=== PATIENT | female | born 1970 | race Caucasian/White ===

== ENCOUNTER 2022-10-14 14:37 | Inpatient (IN) | payer BC ==
[2022-10-14 17:03] VITALS: BMI 19.5
[2022-10-14] MEDS ORDERED: MAGNESIUM HYDROX 2400MG/30ML ORAL SUSPENSION 30 ML CUP PO PRN (17:55)
[2022-10-14] MEDS ORDERED: LOPERAMIDE HCL 2 MG CAPSULE PO PRN (17:55)
[2022-10-14] MEDS ORDERED: ONDANSETRON *ODT* 4 MG TABLET SL PRN (17:55)
[2022-10-14] MEDS ORDERED: POLYETHYLENE GLYCOL (HEALTHYLAX) 3350 17 GM PACKET PO PRN (17:55)
[2022-10-14] MEDS ORDERED: BENZOCAINE/MENTHOL (CHLORASEPTIC ) LOZENGE MM PRN (17:55)
[2022-10-14] MEDS ORDERED: MAG HYDROX/AL HYDROX/SIMETH 30 ML UNIT-DOSE CUP PO PRN (17:55)
[2022-10-14] MEDS ORDERED: P-EPHED 60MG/TRIPROLIDI 2.5MG TABLET PO PRN (17:55)
[2022-10-14] MEDS ORDERED: NALOXONE HCL 0.4 MG/ML VIAL IM PRN (17:55)
[2022-10-14] MEDS ORDERED: cloNIDine HCL 0.1 MG TABLET ONE (17:55)
[2022-10-14] MEDS ORDERED: NALOXONE HCL (KLOXXADO) 8 MG SPRAY NS PRN (17:55)
[2022-10-14] MEDS ORDERED: BISMUTH SUBSALICYLATE 524 MG/30 ML PO PRN (17:55)
[2022-10-14] MEDS ORDERED: DICYCLOMINE HCL 10 MG CAPSULE PO PRN (17:55)
[2022-10-14] MEDS ORDERED: guaiFENesin 200 MG/10 ML 10 ML UNIT-DOSE CUPS PO PRN (17:55)
[2022-10-14] MEDS ORDERED: ACETAMINOPHEN 325 MG TABLET (FP) PO PRN (17:55)
[2022-10-14] MEDS ORDERED: hydrOXYzine PAMOATE 25 MG CAPSULE (FP) PO PRN (17:55)
[2022-10-14] MEDS ORDERED: NICOTINE POLACRILEX 2 MG GUM BUC PRN (17:55)
[2022-10-14] MEDS ORDERED: cloNIDine HCL 0.1 MG TABLET PO ONE (18:00)
[2022-10-14] MEDS: ASPIRIN 325 MG ENTERIC COATED TABLET (FP) PO SCH (22:04)
[2022-10-14] MEDS: THIAMINE HCL 100 MG TABLET (FP) PO SCH (22:04)
[2022-10-14] MEDS: MELATONIN 5 MG TABLETS PO PRN (22:05)
[2022-10-14] MEDS: METHOCARBAMOL 500 MG TABLET PO PRN (22:06)
[2022-10-14] MEDS: diazePAM 5 MG TABLET PO SCH (22:06)
[2022-10-15] MEDS: diazePAM 5 MG TABLET PO SCH ×4 (05:39→22:45)
[2022-10-15] MEDS ORDERED: methaDONE HCL 10 MG TABLET PO SCH (08:45)
[2022-10-15] MEDS: methaDONE 80 MG, methaDONE 10 MG PO SCH (09:05)
[2022-10-15] MEDS: metoPROLOL SUCCINATE 25 MG TAB.SR.24H (FP) PO SCH (09:06)
[2022-10-15] MEDS: ASPIRIN 325 MG ENTERIC COATED TABLET (FP) PO SCH (09:06)
[2022-10-15] MEDS: CLOPIDOGREL BISULFATE 75 MG TABLET (FP) PO SCH (09:06)
[2022-10-15] MEDS: PRENATAL VITAMINS W/ FOLIC ACID TABLET (FP) PO SCH (09:06)
[2022-10-15] MEDS: METHOCARBAMOL 500 MG TABLET PO PRN (10:24)
[2022-10-15] MEDS ORDERED: cloNIDine HCL 0.1 MG TABLET PO ONE (10:41)
[2022-10-15] MEDS ORDERED: NICOTINE 10 MG CARTRIDGE (INHALER) IH PRN (10:55)
[2022-10-15 11:29] LABS: HEMATOCRIT 44.4 % (32.4-45.2); HEMOGLOBIN 14.2 GM/dL (10.7-15.3); MCH 31.9 pg (25.7-33.7); MCHC 31.9 g/dl (32.0-36.0); MEAN CELL VOLUME 100.2 fl (80-96); MEAN PLT VOLUME 8.6 fl (7.5-11.1); PLATELET COUNT 332 10^3/uL (134-434); RBC 4.44 M/mm3 (3.60-5.2); RDW 14.6 % (11.6-15.6); WHITE BLOOD COUNT 7.2 K/mm3 (4.0-10.0)
[2022-10-15 11:44] LABS: ALBUMIN 1.7 g/dl (3.4-5.0); BLOOD UREA NITROGEN 24.8 mg/dL (7-18); CALCIUM 8.2 mg/dL (8.5-10.1)
[2022-10-15 11:47] LABS: CREATININE 1.3 mg/dL (0.55-1.3)
[2022-10-15 11:49] LABS: BILIRUBIN,TOTAL 0.2 mg/dL (0.2-1); TOT PROT 4.6 g/dl (6.4-8.2)
[2022-10-15] MEDS: THIAMINE HCL 100 MG TABLET (FP) PO SCH (22:45)
[2022-10-15] MEDS: MELATONIN 5 MG TABLETS PO PRN (22:45)
[2022-10-16] MEDS: methaDONE 80 MG, methaDONE 10 MG PO SCH (05:36)
[2022-10-16] MEDS: diazePAM 5 MG TABLET PO SCH ×2 (05:37→17:12)
[2022-10-16] MEDS: CLOPIDOGREL BISULFATE 75 MG TABLET (FP) PO SCH (10:21)
[2022-10-16] MEDS: diazePAM 5 MG TABLET PO PRN ×2 (10:21→21:59)
[2022-10-16] MEDS: metoPROLOL SUCCINATE 25 MG TAB.SR.24H (FP) PO SCH (10:21)
[2022-10-16] MEDS: PRENATAL VITAMINS W/ FOLIC ACID TABLET (FP) PO SCH (10:21)
[2022-10-16] MEDS: INSULIN SLIDING SCALE (NOVOLOG) 1 VIAL SQ SCH (17:08)
[2022-10-16] MEDS: METHOCARBAMOL 500 MG TABLET PO PRN ×2 (17:12→22:32)
[2022-10-16] MEDS: THIAMINE HCL 100 MG TABLET (FP) PO SCH (21:58)
[2022-10-16] MEDS: MELATONIN 5 MG TABLETS PO PRN (22:00)
[2022-10-17] MEDS: methaDONE 80 MG, methaDONE 10 MG PO SCH (05:23)
[2022-10-17] MEDS ORDERED: diazePAM 5 MG TABLET PO ONE (06:00)
[2022-10-17] MEDS: INSULIN SLIDING SCALE (NOVOLOG) 1 VIAL SQ SCH ×2 (06:04→17:54)
[2022-10-17] MEDS: diazePAM 5 MG TABLET PO PRN ×2 (09:05→15:08)
[2022-10-17] MEDS: PRENATAL VITAMINS W/ FOLIC ACID TABLET (FP) PO SCH (10:26)
[2022-10-17] MEDS: metoPROLOL SUCCINATE 25 MG TAB.SR.24H (FP) PO SCH (10:26)
[2022-10-17] MEDS: CLOPIDOGREL BISULFATE 75 MG TABLET (FP) PO SCH (10:26)
[2022-10-17] MEDS: ACETAMINOPHEN 325 MG TABLET (FP) PO PRN (10:27)
[2022-10-17] MEDS: METHOCARBAMOL 500 MG TABLET PO PRN (22:14)
[2022-10-17] MEDS: MELATONIN 5 MG TABLETS PO PRN (22:20)
[2022-10-17] MEDS: THIAMINE HCL 100 MG TABLET (FP) PO SCH (22:20)
[2022-10-18] MEDS: methaDONE 80 MG, methaDONE 10 MG PO SCH (05:18)
[2022-10-18] MEDS: METHOCARBAMOL 500 MG TABLET PO PRN ×2 (05:20→22:17)
[2022-10-18] MEDS: INSULIN SLIDING SCALE (NOVOLOG) 1 VIAL SQ SCH ×2 (07:29→17:16)
[2022-10-18] MEDS ORDERED: LISINOPRIL 10 MG TABLET PO ONE (07:46)
[2022-10-18] MEDS: metoPROLOL SUCCINATE 25 MG TAB.SR.24H (FP) PO SCH (09:20)
[2022-10-18] MEDS: CLOPIDOGREL BISULFATE 75 MG TABLET (FP) PO SCH (09:20)
[2022-10-18] MEDS: PRENATAL VITAMINS W/ FOLIC ACID TABLET (FP) PO SCH (09:20)
[2022-10-18] MEDS: THIAMINE HCL 100 MG TABLET (FP) PO SCH (22:16)
[2022-10-18] MEDS: MELATONIN 5 MG TABLETS PO PRN (22:16)
[2022-10-19] MEDS: methaDONE 80 MG, methaDONE 10 MG PO SCH (05:29)
[2022-10-19] MEDS: METHOCARBAMOL 500 MG TABLET PO PRN (05:32)
[2022-10-19 07:23] VITALS: RESP 18
[2022-10-19] MEDS: INSULIN SLIDING SCALE (NOVOLOG) 1 VIAL SQ SCH (07:58)
[2022-10-19] MEDS: ACETAMINOPHEN 325 MG TABLET (FP) PO PRN (08:00)
[2022-10-19] MEDS: CLOPIDOGREL BISULFATE 75 MG TABLET (FP) PO SCH (09:36)
[2022-10-19] MEDS: PRENATAL VITAMINS W/ FOLIC ACID TABLET (FP) PO SCH (09:36)
[2022-10-19] MEDS: metoPROLOL SUCCINATE 25 MG TAB.SR.24H (FP) PO SCH (09:36)
[2022-10-19 09:44] VITALS: TEMP 96.8
[2022-10-19 11:23] VITALS: BP 163/73; PULSE 51
== END 2022-10-19 13:22 | disposition home or self-care (01) | DRG 773 ==
LOC: YASAS 14:37 → Y3N 18:15
PROVIDERS: ADMIT Allergy & Immunology; ATTEND Surgery
PROC: HZ2ZZZZ Detoxification Services for Substance Abuse Treatment (ICD-10-PCS; principal; 2022-10-14)
DX: F10.230 Alcohol dependence with withdrawal, uncomplicated (principal); F11.20 Opioid dependence, uncomplicated; F14.20 Cocaine dependence, uncomplicated; F12.20 Cannabis dependence, uncomplicated; I25.10 Atherosclerotic heart disease of native coronary artery without angina pectoris; I25.2 Old myocardial infarction; Z95.5 Presence of coronary angioplasty implant and graft; E11.65 Type 2 diabetes mellitus with hyperglycemia; Z79.84 Long term (current) use of oral hypoglycemic drugs; Z86.2 Personal history of diseases of the blood and blood-forming organs and certain disorders involving the immune mechanism; Z88.0 Allergy status to penicillin
CPT/HCPCS: 36415; 80053; 82962; 85027; 86780; 93005; 93010; C9803-CS; U0003; U0005

== ENCOUNTER 2022-11-30 18:26 | Inpatient (IN) | payer BC ==
[2022-11-30 19:38] VITALS: BMI 18.8
[2022-11-30] MEDS ORDERED: POLYETHYLENE GLYCOL (HEALTHYLAX) 3350 17 GM PACKET PO PRN (21:26)
[2022-11-30] MEDS ORDERED: NICOTINE POLACRILEX 2 MG GUM BUC PRN (21:26)
[2022-11-30] MEDS ORDERED: NICOTINE 10 MG CARTRIDGE (INHALER) IH PRN (21:26)
[2022-11-30] MEDS ORDERED: NALOXONE HCL (KLOXXADO) 8 MG SPRAY NS PRN (21:26)
[2022-11-30] MEDS ORDERED: IBUPROFEN 600 MG TABLET (FP) PO PRN (21:26)
[2022-11-30] MEDS ORDERED: BENZOCAINE/MENTHOL (CHLORASEPTIC ) LOZENGE MM PRN (21:26)
[2022-11-30] MEDS ORDERED: BISMUTH SUBSALICYLATE 524 MG/30 ML PO PRN (21:26)
[2022-11-30] MEDS ORDERED: LOPERAMIDE HCL 2 MG CAPSULE PO PRN (21:26)
[2022-11-30] MEDS ORDERED: P-EPHED 60MG/TRIPROLIDI 2.5MG TABLET PO PRN (21:26)
[2022-11-30] MEDS ORDERED: DICYCLOMINE HCL 10 MG CAPSULE PO PRN (21:26)
[2022-11-30] MEDS ORDERED: IBUPROFEN 400 MG TABLET (FP) PO PRN (21:26)
[2022-11-30] MEDS ORDERED: MAGNESIUM HYDROX 2400MG/30ML ORAL SUSPENSION 30 ML CUP PO PRN (21:26)
[2022-11-30] MEDS ORDERED: ACETAMINOPHEN 325 MG TABLET (FP) PO PRN ×2 (21:26)
[2022-11-30] MEDS ORDERED: guaiFENesin 200 MG/10 ML 10 ML UNIT-DOSE CUPS PO PRN (21:26)
[2022-11-30] MEDS ORDERED: NALOXONE HCL 0.4 MG/ML VIAL IM PRN (21:26)
[2022-11-30] MEDS ORDERED: ONDANSETRON *ODT* 4 MG TABLET SL PRN (21:26)
[2022-11-30] MEDS ORDERED: MAG HYDROX/AL HYDROX/SIMETH 30 ML UNIT-DOSE CUP PO PRN (21:26)
[2022-11-30] MEDS: THIAMINE HCL 100 MG TABLET (FP) PO SCH (23:26)
[2022-11-30] MEDS: hydrOXYzine PAMOATE 25 MG CAPSULE (FP) PO PRN (23:26)
[2022-11-30] MEDS: METHOCARBAMOL 500 MG TABLET PO PRN (23:26)
[2022-11-30] MEDS: diazePAM 5 MG TABLET PO PRN (23:26)
[2022-11-30] MEDS: CARVEDILOL 3.125 MG TABLET (FP) PO SCH (23:55)
[2022-11-30] MEDS: TICAGRELOR 90 MG TABLET PO SCH (23:56)
[2022-12-01] MEDS: metFORMIN HCL 500 MG TABLET (FP) PO SCH ×2 (06:10→17:22)
[2022-12-01] MEDS ORDERED: amLODIPine BESYLATE 10 MG TABLET (FP) PO ONE (06:35)
[2022-12-01] MEDS ORDERED: INSULIN SLIDING SCALE (NOVOLOG) 1 VIAL SQ ONE (06:49)
[2022-12-01] MEDS ORDERED: methaDONE HCL 10 MG TABLET PO SCH (08:30)
[2022-12-01] MEDS ORDERED: diazePAM 5 MG TABLET PO PRN (09:44)
[2022-12-01] MEDS: PRENATAL VITAMINS W/ FOLIC ACID TABLET (FP) PO SCH (09:59)
[2022-12-01] MEDS: ASPIRIN 81 MG CHEWABLE TABLETS PO SCH (09:59)
[2022-12-01] MEDS: METHOCARBAMOL 500 MG TABLET PO PRN (09:59)
[2022-12-01] MEDS: CARVEDILOL 3.125 MG TABLET (FP) PO SCH ×2 (09:59→22:21)
[2022-12-01] MEDS: TICAGRELOR 90 MG TABLET PO SCH ×2 (09:59→23:36)
[2022-12-01] MEDS: diazePAM 5 MG TABLET PO SCH ×3 (10:01→22:22)
[2022-12-01] MEDS: amLODIPine BESYLATE 10 MG TABLET (FP) PO SCH (10:03)
[2022-12-01 12:37] LABS: HEMATOCRIT 37.8 % (32.4-45.2); HEMOGLOBIN 12.3 GM/dL (10.7-15.3); MCH 31.7 pg (25.7-33.7); MCHC 32.5 g/dl (32.0-36.0); MEAN CELL VOLUME 97.7 fl (80-96); MEAN PLT VOLUME 7.5 fl (7.5-11.1); PLATELET COUNT 359 10^3/uL (134-434); RBC 3.87 M/mm3 (3.60-5.2); RDW 13.8 % (11.6-15.6); WHITE BLOOD COUNT 7.9 K/mm3 (4.0-10.0)
[2022-12-01 12:42] LABS: CALCIUM 8.4 mg/dL (8.5-10.1)
[2022-12-01 12:43] LABS: BLOOD UREA NITROGEN 27.5 mg/dL (7-18)
[2022-12-01 12:47] LABS: BILIRUBIN,TOTAL 0.2 mg/dL (0.2-1); CREATININE 1.2 mg/dL (0.55-1.3)
[2022-12-01] MEDS: hydrOXYzine PAMOATE 25 MG CAPSULE (FP) PO PRN (21:38)
[2022-12-01] MEDS: TICAGRELOR 90 MG PO SCH (22:21)
[2022-12-01] MEDS: THIAMINE HCL 100 MG TABLET (FP) PO SCH (22:21)
[2022-12-01] MEDS: ATORVASTATIN CA 10 MG TABLET (FP) PO SCH (22:21)
[2022-12-02] MEDS: diazePAM 5 MG TABLET PO SCH ×4 (05:46→22:20)
[2022-12-02] MEDS: metFORMIN HCL 500 MG TABLET (FP) PO SCH ×2 (07:08→17:03)
[2022-12-02] MEDS: TICAGRELOR 90 MG PO SCH ×2 (10:09→22:18)
[2022-12-02] MEDS: PRENATAL VITAMINS W/ FOLIC ACID TABLET (FP) PO SCH (10:10)
[2022-12-02] MEDS: amLODIPine BESYLATE 10 MG TABLET (FP) PO SCH (10:10)
[2022-12-02] MEDS: ASPIRIN 81 MG CHEWABLE TABLETS PO SCH (10:10)
[2022-12-02] MEDS: CARVEDILOL 3.125 MG TABLET (FP) PO SCH ×2 (10:38→22:18)
[2022-12-02] MEDS: INSULIN SLIDING SCALE (NOVOLOG) 1 VIAL SQ SCH (17:03)
[2022-12-02] MEDS: MELATONIN 5 MG TABLETS PO PRN (22:18)
[2022-12-02] MEDS: THIAMINE HCL 100 MG TABLET (FP) PO SCH (22:18)
[2022-12-02] MEDS: ATORVASTATIN CA 10 MG TABLET (FP) PO SCH (22:20)
[2022-12-02] MEDS: METHOCARBAMOL 500 MG TABLET PO PRN (22:20)
[2022-12-03] MEDS: metFORMIN HCL 500 MG TABLET (FP) PO SCH ×2 (06:14→17:00)
[2022-12-03] MEDS: diazePAM 5 MG TABLET PO SCH ×3 (06:14→22:16)
[2022-12-03] MEDS: INSULIN SLIDING SCALE (NOVOLOG) 1 VIAL SQ SCH ×3 (06:23→17:00)
[2022-12-03] MEDS: ASPIRIN 81 MG CHEWABLE TABLETS PO SCH (10:00)
[2022-12-03] MEDS: CARVEDILOL 3.125 MG TABLET (FP) PO SCH ×2 (10:00→22:16)
[2022-12-03] MEDS: PRENATAL VITAMINS W/ FOLIC ACID TABLET (FP) PO SCH (10:00)
[2022-12-03] MEDS: TICAGRELOR 90 MG PO SCH ×2 (10:00→22:16)
[2022-12-03] MEDS: amLODIPine BESYLATE 10 MG TABLET (FP) PO SCH (10:00)
[2022-12-03] MEDS: diazePAM 5 MG TABLET PO PRN (10:01)
[2022-12-03 14:50] LABS: CALCIUM 8.7 mg/dL (8.5-10.1)
[2022-12-03] MEDS: ATORVASTATIN CA 10 MG TABLET (FP) PO SCH (22:16)
[2022-12-03] MEDS: THIAMINE HCL 100 MG TABLET (FP) PO SCH (22:16)
[2022-12-03] MEDS: MELATONIN 5 MG TABLETS PO PRN (22:16)
[2022-12-04] MEDS: diazePAM 5 MG TABLET PO SCH ×2 (05:27→17:09)
[2022-12-04] MEDS: metFORMIN HCL 500 MG TABLET (FP) PO SCH ×2 (06:57→17:09)
[2022-12-04] MEDS: INSULIN SLIDING SCALE (NOVOLOG) 1 VIAL SQ SCH ×3 (06:57→17:09)
[2022-12-04] MEDS: ASPIRIN 81 MG CHEWABLE TABLETS PO SCH (09:53)
[2022-12-04] MEDS: LOSARTAN POTASSIUM 50 MG TABLET PO SCH (09:53)
[2022-12-04] MEDS: CARVEDILOL 3.125 MG TABLET (FP) PO SCH ×2 (09:53→21:48)
[2022-12-04] MEDS: amLODIPine BESYLATE 10 MG TABLET (FP) PO SCH (09:53)
[2022-12-04] MEDS: PRENATAL VITAMINS W/ FOLIC ACID TABLET (FP) PO SCH (09:54)
[2022-12-04] MEDS: TICAGRELOR 90 MG PO SCH ×2 (09:54→21:49)
[2022-12-04] MEDS ORDERED: INSULIN SLIDING SCALE (NOVOLOG) 1 VIAL SQ ONE (12:09)
[2022-12-04] MEDS: THIAMINE HCL 100 MG TABLET (FP) PO SCH (21:48)
[2022-12-04] MEDS: ATORVASTATIN CA 10 MG TABLET (FP) PO SCH (21:48)
[2022-12-04] MEDS: MELATONIN 5 MG TABLETS PO PRN (21:49)
[2022-12-05] MEDS ORDERED: diazePAM 5 MG TABLET PO ONE (06:00)
[2022-12-05] MEDS: metFORMIN HCL 500 MG TABLET (FP) PO SCH (06:08)
[2022-12-05] MEDS: INSULIN SLIDING SCALE (NOVOLOG) 1 VIAL SQ SCH (06:09)
[2022-12-05 06:17] VITALS: PULSE 57
[2022-12-05] MEDS: amLODIPine BESYLATE 10 MG TABLET (FP) PO SCH (09:41)
[2022-12-05] MEDS: CARVEDILOL 3.125 MG TABLET (FP) PO SCH (09:41)
[2022-12-05] MEDS: PRENATAL VITAMINS W/ FOLIC ACID TABLET (FP) PO SCH (09:41)
[2022-12-05] MEDS: ASPIRIN 81 MG CHEWABLE TABLETS PO SCH (09:41)
[2022-12-05] MEDS: TICAGRELOR 90 MG PO SCH (09:41)
[2022-12-05] MEDS: LOSARTAN POTASSIUM 50 MG TABLET PO SCH (09:41)
[2022-12-05 09:59] VITALS: BP 104/60; RESP 16; TEMP 97.3
== END 2022-12-05 10:20 | disposition home or self-care (01) | DRG 773 ==
LOC: YASAS 18:26 → UNDOADMIN 22:55 → Y3N 22:55
PROVIDERS: ADMIT Allergy & Immunology; ATTEND Surgery
PROC: HZ2ZZZZ Detoxification Services for Substance Abuse Treatment (ICD-10-PCS; principal; 2022-11-30)
DX: F11.23 Opioid dependence with withdrawal (principal); F10.230 Alcohol dependence with withdrawal, uncomplicated; F14.20 Cocaine dependence, uncomplicated; F12.20 Cannabis dependence, uncomplicated; F17.210 Nicotine dependence, cigarettes, uncomplicated; I25.10 Atherosclerotic heart disease of native coronary artery without angina pectoris; I10 Essential (primary) hypertension; I25.2 Old myocardial infarction; Z95.5 Presence of coronary angioplasty implant and graft; E11.65 Type 2 diabetes mellitus with hyperglycemia; Z79.84 Long term (current) use of oral hypoglycemic drugs; R26.89 Other abnormalities of gait and mobility; Z88.0 Allergy status to penicillin
CPT/HCPCS: 36415; 80048; 80053; 81025; 82962; 85027; 86780; C9803-CS; U0003; U0005

== ENCOUNTER 2023-03-18 14:48 | Inpatient (IN) | payer BC, OTHER ==
[2023-03-18 15:13] VITALS: BMI 17.6
[2023-03-18] MEDS ORDERED: guaiFENesin 600 MG TABLET.ER (FP) PO PRN (16:57)
[2023-03-18] MEDS ORDERED: NALOXONE HCL (KLOXXADO) 8 MG SPRAY NS PRN (16:57)
[2023-03-18] MEDS ORDERED: POLYETHYLENE GLYCOL (HEALTHYLAX) 3350 17 GM PACKET PO PRN (16:57)
[2023-03-18] MEDS ORDERED: MAG HYDROX/AL HYDROX/SIMETH 30 ML UNIT-DOSE CUP PO PRN (16:57)
[2023-03-18] MEDS ORDERED: LOPERAMIDE HCL 2 MG CAPSULE PO PRN (16:57)
[2023-03-18] MEDS ORDERED: MAGNESIUM HYDROX 2400MG/30ML ORAL SUSPENSION 30 ML CUP PO PRN (16:57)
[2023-03-18] MEDS ORDERED: BENZONATATE 200 MG CAPSULE PO PRN (16:57)
[2023-03-18] MEDS ORDERED: NALOXONE HCL 0.4 MG/ML VIAL IM PRN (16:57)
[2023-03-18] MEDS ORDERED: IBUPROFEN 600 MG TABLET (FP) PO PRN (16:57)
[2023-03-18] MEDS ORDERED: AMMONIUM LACTATE 12% LOTION 225 GM BOTTLE TP PRN (16:57)
[2023-03-18] MEDS ORDERED: COLLOIDAL OATMEAL 1 BAR EACH TP PRN (16:57)
[2023-03-18] MEDS ORDERED: methaDONE HCL 10 MG TABLET (FOR DETOX USE ONLY) PO ONE (16:59)
[2023-03-18] MEDS ORDERED: methaDONE HCL 10 MG TABLET (FOR DETOX USE ONLY) ONE (17:55)
[2023-03-18] MEDS ORDERED: hydrOXYzine PAMOATE 25 MG CAPSULE (FP) PO ONE (18:31)
[2023-03-18] MEDS: hydrOXYzine PAMOATE 25 MG CAPSULE (FP) PO PRN (18:32)
[2023-03-18] MEDS ORDERED: cloNIDine HCL 0.1 MG TABLET PO ONE (19:26)
[2023-03-18] MEDS: PRENATAL VITAMINS W/ FOLIC ACID TABLET (FP) PO SCH (21:55)
[2023-03-18] MEDS: NICOTINE 14 MG/24 HOURS TOPICAL PATCH TD SCH (21:55)
[2023-03-18] MEDS: GABAPENTIN 300 MG CAPSULE PO SCH (21:59)
[2023-03-18] MEDS: THIAMINE HCL 100 MG TABLET (FP) PO SCH (21:59)
[2023-03-18] MEDS ORDERED: GABAPENTIN 400 MG CAPSULE PO SCH (22:00)
[2023-03-18] MEDS ORDERED: MELATONIN 5 MG TABLETS PO SCH (22:00)
[2023-03-19] MEDS: TICAGRELOR 90 MG TABLET PO SCH ×3 (00:15→23:31)
[2023-03-19] MEDS: BENZOCAINE/MENTHOL (CHLORASEPTIC ) LOZENGE MM PRN (03:47)
[2023-03-19] MEDS: GABAPENTIN 300 MG CAPSULE PO SCH ×3 (06:44→21:40)
[2023-03-19] MEDS: metFORMIN HCL 500 MG TABLET (FP) PO SCH ×2 (06:44→16:21)
[2023-03-19] MEDS ORDERED: methaDONE HCL 10 MG TABLET PO ONE (10:06)
[2023-03-19] MEDS ORDERED: cloNIDine HCL 0.1 MG TABLET PO ONE (10:11)
[2023-03-19] MEDS: LOSARTAN POTASSIUM 50 MG TABLET PO SCH (10:20)
[2023-03-19] MEDS ORDERED: methaDONE 40 MG, methaDONE 30 MG PO ONE (10:20)
[2023-03-19] MEDS: PRENATAL VITAMINS W/ FOLIC ACID TABLET (FP) PO SCH (10:21)
[2023-03-19] MEDS: amLODIPine BESYLATE 10 MG TABLET (FP) PO SCH (10:21)
[2023-03-19] MEDS: NICOTINE 14 MG/24 HOURS TOPICAL PATCH TD SCH (10:21)
[2023-03-19] MEDS: ASPIRIN 81 MG CHEWABLE TABLETS PO SCH (10:21)
[2023-03-19 10:27] LABS: HEMATOCRIT 39.9 % (32.4-45.2); HEMOGLOBIN 13.4 GM/dL (10.7-15.3); MCHC 33.5 g/dl (32.0-36.0); MEAN CELL VOLUME 101.5 fl (80-96); MEAN PLT VOLUME 8.7 fl (7.5-11.1); PLATELET COUNT 317 10^3/uL (134-434); RBC 3.93 M/mm3 (3.60-5.2); RDW 15.6 % (11.6-15.6); WHITE BLOOD COUNT 5.4 K/mm3 (4.0-10.0)
[2023-03-19 10:31] LABS: POTASSIUM 4.6 mmol/L (3.5-5.1)
[2023-03-19 10:35] LABS: CALCIUM 8.1 mg/dL (8.5-10.1)
[2023-03-19 10:36] LABS: BLOOD UREA NITROGEN 18.8 mg/dL (7-18)
[2023-03-19 10:39] LABS: CREATININE 1.3 mg/dL (0.55-1.3)
[2023-03-19 10:40] LABS: BILIRUBIN,TOTAL 0.3 mg/dL (0.2-1); TOT PROT 5.4 g/dl (6.4-8.2)
[2023-03-19 11:36] LABS: SYPHILIS W/ RPR CONF NON-REACTIVE (NONREACTIVE)
[2023-03-19] MEDS: BICTEGRAV/EMTRICIT/TENOFOV (BIKTARVY) 50-200-25 MG TABLET PO SCH (16:21)
[2023-03-19] MEDS: hydrOXYzine PAMOATE 25 MG CAPSULE (FP) PO PRN (16:21)
[2023-03-19] MEDS: THIAMINE HCL 100 MG TABLET (FP) PO SCH (21:40)
[2023-03-19] MEDS: SUVOREXANT 5 MG TABLET PO PRN (21:42)
[2023-03-19] MEDS: cloNIDine HCL 0.1 MG TABLET PO SCH (22:20)
[2023-03-20 02:08] LABS: EPI CELLS 35 /uL (0-25.1); HYALINE CASTS 11 /uL (0-3.1); PH,URINE 5.5 (5.0-8.0); URINE APPEARANCE CLEAR; URINE BACTERIA 23 /uL (0-1359); URINE BILIRUBIN NEGATIVE (NEGATIVE); URINE COLOR YELLOW; URINE GLUCOSE (UA) 2+ (NEGATIVE); URINE KETONE NEGATIVE (NEGATIVE); URINE LEUK ESTERASE NEGATIVE (NEGATIVE); URINE NITRITE NEGATIVE (NEGATIVE); URINE PROTEIN 3+ (NEGATIVE); URINE RBC 18 /uL (0-23.9); URINE UROBILINOGEN 0.2 mg/dL (0.2-1.0); URINE WBC 26 /uL (0-25.8)
[2023-03-20] MEDS ORDERED: methaDONE HCL 10 MG TABLET PO SCH (06:00)
[2023-03-20] MEDS: GABAPENTIN 300 MG CAPSULE PO SCH ×3 (06:20→22:27)
[2023-03-20] MEDS: methaDONE 40 MG, methaDONE 30 MG PO SCH (06:21)
[2023-03-20] MEDS: metFORMIN HCL 500 MG TABLET (FP) PO SCH ×2 (06:21→17:11)
[2023-03-20] MEDS: BICTEGRAV/EMTRICIT/TENOFOV (BIKTARVY) 50-200-25 MG TABLET PO SCH (07:58)
[2023-03-20] MEDS ORDERED: BICTEGRAV/EMTRICIT/TENOFOV (BIKTARVY) 50-200-25 MG TABLET PO SCH (10:00)
[2023-03-20] MEDS: PRENATAL VITAMINS W/ FOLIC ACID TABLET (FP) PO SCH (10:30)
[2023-03-20] MEDS: cloNIDine HCL 0.1 MG TABLET PO SCH ×2 (10:30→22:27)
[2023-03-20] MEDS: ASPIRIN 81 MG CHEWABLE TABLETS PO SCH (10:30)
[2023-03-20] MEDS: NICOTINE 14 MG/24 HOURS TOPICAL PATCH TD SCH (10:30)
[2023-03-20] MEDS: amLODIPine BESYLATE 10 MG TABLET (FP) PO SCH (10:30)
[2023-03-20] MEDS: TICAGRELOR 90 MG TABLET PO SCH ×2 (10:31→22:27)
[2023-03-20] MEDS: LOSARTAN POTASSIUM 50 MG TABLET PO SCH (10:31)
[2023-03-20] MEDS: NICOTINE 10 MG CARTRIDGE (INHALER) IH PRN ×2 (12:46→19:05)
[2023-03-20] MEDS: NICOTINE 10 MG CARTRIDGE (INHALER) IH SCH (13:36)
[2023-03-20] MEDS: INSULIN SLIDING SCALE (NOVOLOG) 1 VIAL SQ SCH (17:13)
[2023-03-20] MEDS: SUVOREXANT 5 MG TABLET PO PRN (22:26)
[2023-03-20] MEDS: THIAMINE HCL 100 MG TABLET (FP) PO SCH (22:27)
[2023-03-21] MEDS: IBUPROFEN 400 MG TABLET (FP) PO PRN (00:52)
[2023-03-21] MEDS: metFORMIN HCL 500 MG TABLET (FP) PO SCH ×2 (06:00→16:52)
[2023-03-21] MEDS: GABAPENTIN 300 MG CAPSULE PO SCH ×3 (06:18→22:39)
[2023-03-21] MEDS: methaDONE 40 MG, methaDONE 30 MG PO SCH (06:19)
[2023-03-21] MEDS: INSULIN SLIDING SCALE (NOVOLOG) 1 VIAL SQ SCH ×2 (06:20→16:53)
[2023-03-21] MEDS: BICTEGRAV/EMTRICIT/TENOFOV (BIKTARVY) 50-200-25 MG TABLET PO SCH (07:44)
[2023-03-21] MEDS: LOSARTAN POTASSIUM 50 MG TABLET PO SCH (10:07)
[2023-03-21] MEDS: cloNIDine HCL 0.1 MG TABLET PO SCH ×2 (10:07→22:39)
[2023-03-21] MEDS: TICAGRELOR 90 MG TABLET PO SCH ×2 (10:07→22:39)
[2023-03-21] MEDS: amLODIPine BESYLATE 10 MG TABLET (FP) PO SCH (10:07)
[2023-03-21] MEDS: ASPIRIN 81 MG CHEWABLE TABLETS PO SCH (10:08)
[2023-03-21] MEDS: NICOTINE 10 MG CARTRIDGE (INHALER) IH SCH (10:08)
[2023-03-21] MEDS: NICOTINE 14 MG/24 HOURS TOPICAL PATCH TD SCH (10:08)
[2023-03-21] MEDS: PRENATAL VITAMINS W/ FOLIC ACID TABLET (FP) PO SCH (10:09)
[2023-03-21] MEDS: SUVOREXANT 5 MG TABLET PO PRN (22:38)
[2023-03-21] MEDS: THIAMINE HCL 100 MG TABLET (FP) PO SCH (22:39)
[2023-03-22] MEDS: IBUPROFEN 400 MG TABLET (FP) PO PRN (01:19)
[2023-03-22] MEDS: BENZOCAINE/MENTHOL (CHLORASEPTIC ) LOZENGE MM PRN (01:20)
[2023-03-22] MEDS: methaDONE 40 MG, methaDONE 30 MG PO SCH (06:23)
[2023-03-22] MEDS: GABAPENTIN 300 MG CAPSULE PO SCH ×3 (06:23→22:01)
[2023-03-22] MEDS: metFORMIN HCL 500 MG TABLET (FP) PO SCH ×2 (06:23→17:08)
[2023-03-22] MEDS ORDERED: INSULIN (NOVOLOG) ASPART 100 UNITS/ML 10ML VIAL ONE (06:28)
[2023-03-22] MEDS: INSULIN SLIDING SCALE (NOVOLOG) 1 VIAL SQ SCH ×2 (06:29→17:07)
[2023-03-22] MEDS: amLODIPine BESYLATE 10 MG TABLET (FP) PO SCH (09:46)
[2023-03-22] MEDS: TICAGRELOR 90 MG TABLET PO SCH ×2 (09:46→22:01)
[2023-03-22] MEDS: ASPIRIN 81 MG CHEWABLE TABLETS PO SCH (09:46)
[2023-03-22] MEDS: PRENATAL VITAMINS W/ FOLIC ACID TABLET (FP) PO SCH (09:46)
[2023-03-22] MEDS: BICTEGRAV/EMTRICIT/TENOFOV (BIKTARVY) 50-200-25 MG TABLET PO SCH (09:46)
[2023-03-22] MEDS: NICOTINE 10 MG CARTRIDGE (INHALER) IH SCH (11:49)
[2023-03-22] MEDS: hydrOXYzine PAMOATE 25 MG CAPSULE (FP) PO PRN (11:49)
[2023-03-22] MEDS: cloNIDine HCL 0.1 MG TABLET PO SCH ×3 (11:50→22:01)
[2023-03-22] MEDS: LOSARTAN POTASSIUM 50 MG TABLET PO SCH (11:50)
[2023-03-22] MEDS: NICOTINE 14 MG/24 HOURS TOPICAL PATCH TD SCH (11:50)
[2023-03-22] MEDS ORDERED: ALBUTEROL SO4 HFA INHALER IH PRN (11:51)
[2023-03-22] MEDS: NICOTINE 10 MG CARTRIDGE (INHALER) IH PRN (14:01)
[2023-03-22] MEDS: ALBUTEROL SO4 HFA INHALER IH PRN ×2 (14:38→22:01)
[2023-03-22] MEDS: SUVOREXANT 5 MG TABLET PO PRN (22:00)
[2023-03-22] MEDS: THIAMINE HCL 100 MG TABLET (FP) PO SCH (22:01)
[2023-03-23] MEDS: IBUPROFEN 400 MG TABLET (FP) PO PRN (00:17)
[2023-03-23] MEDS: BENZOCAINE/MENTHOL (CHLORASEPTIC ) LOZENGE MM PRN ×2 (00:18→23:13)
[2023-03-23] MEDS: ALBUTEROL SO4 HFA INHALER IH PRN ×3 (06:10→21:40)
[2023-03-23] MEDS: GABAPENTIN 300 MG CAPSULE PO SCH ×3 (06:11→21:40)
[2023-03-23] MEDS: metFORMIN HCL 500 MG TABLET (FP) PO SCH ×2 (06:11→16:41)
[2023-03-23] MEDS: methaDONE 40 MG, methaDONE 30 MG PO SCH (06:11)
[2023-03-23] MEDS ORDERED: INSULIN (NOVOLOG) ASPART 100 UNITS/ML 10ML VIAL ONE ×2 (06:16→16:34)
[2023-03-23] MEDS: INSULIN SLIDING SCALE (NOVOLOG) 1 VIAL SQ SCH ×2 (06:17→16:38)
[2023-03-23] MEDS: hydrOXYzine PAMOATE 25 MG CAPSULE (FP) PO PRN ×2 (08:23→23:11)
[2023-03-23] MEDS: BICTEGRAV/EMTRICIT/TENOFOV (BIKTARVY) 50-200-25 MG TABLET PO SCH (09:52)
[2023-03-23] MEDS: ASPIRIN 81 MG CHEWABLE TABLETS PO SCH (09:52)
[2023-03-23] MEDS: LOSARTAN POTASSIUM 50 MG TABLET PO SCH (09:52)
[2023-03-23] MEDS: amLODIPine BESYLATE 10 MG TABLET (FP) PO SCH (09:52)
[2023-03-23] MEDS: PRENATAL VITAMINS W/ FOLIC ACID TABLET (FP) PO SCH (09:53)
[2023-03-23] MEDS: NICOTINE 10 MG CARTRIDGE (INHALER) IH SCH (09:53)
[2023-03-23] MEDS: NICOTINE 14 MG/24 HOURS TOPICAL PATCH TD SCH (09:53)
[2023-03-23] MEDS: TICAGRELOR 90 MG TABLET PO SCH ×2 (09:54→21:40)
[2023-03-23] MEDS: cloNIDine HCL 0.1 MG TABLET PO SCH ×2 (09:56→21:40)
[2023-03-23] MEDS: THIAMINE HCL 100 MG TABLET (FP) PO SCH (21:40)
[2023-03-23] MEDS: SUVOREXANT 5 MG TABLET PO PRN (21:42)
[2023-03-24] MEDS: ACETAMINOPHEN 325 MG TABLET (FP) PO PRN (04:18)
[2023-03-24] MEDS: methaDONE 40 MG, methaDONE 30 MG PO SCH (06:40)
[2023-03-24] MEDS: metFORMIN HCL 500 MG TABLET (FP) PO SCH ×2 (06:41→16:41)
[2023-03-24] MEDS: GABAPENTIN 300 MG CAPSULE PO SCH ×3 (06:41→21:45)
[2023-03-24] MEDS: INSULIN SLIDING SCALE (NOVOLOG) 1 VIAL SQ SCH ×2 (07:51→16:42)
[2023-03-24] MEDS: BICTEGRAV/EMTRICIT/TENOFOV (BIKTARVY) 50-200-25 MG TABLET PO SCH (07:53)
[2023-03-24] MEDS: PRENATAL VITAMINS W/ FOLIC ACID TABLET (FP) PO SCH (10:08)
[2023-03-24] MEDS: NICOTINE 14 MG/24 HOURS TOPICAL PATCH TD SCH (10:08)
[2023-03-24] MEDS: TICAGRELOR 90 MG TABLET PO SCH ×2 (10:09→21:47)
[2023-03-24] MEDS: ASPIRIN 81 MG CHEWABLE TABLETS PO SCH (10:09)
[2023-03-24] MEDS: LOSARTAN POTASSIUM 50 MG TABLET PO SCH (10:09)
[2023-03-24] MEDS: amLODIPine BESYLATE 10 MG TABLET (FP) PO SCH (10:09)
[2023-03-24] MEDS: cloNIDine HCL 0.1 MG TABLET PO SCH ×2 (10:09→21:45)
[2023-03-24] MEDS: NICOTINE 10 MG CARTRIDGE (INHALER) IH SCH (10:11)
[2023-03-24] MEDS: ALBUTEROL SO4 HFA INHALER IH PRN ×3 (10:12→21:44)
[2023-03-24] MEDS: SUVOREXANT 5 MG TABLET PO PRN (21:43)
[2023-03-24] MEDS: THIAMINE HCL 100 MG TABLET (FP) PO SCH (21:45)
[2023-03-25] MEDS: hydrOXYzine PAMOATE 25 MG CAPSULE (FP) PO PRN (00:57)
[2023-03-25] MEDS: ACETAMINOPHEN 325 MG TABLET (FP) PO PRN (00:57)
[2023-03-25] MEDS: GABAPENTIN 300 MG CAPSULE PO SCH ×3 (06:12→21:29)
[2023-03-25] MEDS: methaDONE 40 MG, methaDONE 30 MG PO SCH (06:12)
[2023-03-25] MEDS: metFORMIN HCL 500 MG TABLET (FP) PO SCH ×2 (06:13→17:09)
[2023-03-25] MEDS: BENZOCAINE/MENTHOL (CHLORASEPTIC ) LOZENGE MM PRN (06:14)
[2023-03-25] MEDS: ALBUTEROL SO4 HFA INHALER IH PRN (06:14)
[2023-03-25] MEDS: INSULIN SLIDING SCALE (NOVOLOG) 1 VIAL SQ SCH ×2 (07:47→17:11)
[2023-03-25] MEDS: LOSARTAN POTASSIUM 50 MG TABLET PO SCH (10:18)
[2023-03-25] MEDS: NICOTINE 14 MG/24 HOURS TOPICAL PATCH TD SCH (10:18)
[2023-03-25] MEDS: cloNIDine HCL 0.1 MG TABLET PO SCH ×2 (10:18→21:29)
[2023-03-25] MEDS: BICTEGRAV/EMTRICIT/TENOFOV (BIKTARVY) 50-200-25 MG TABLET PO SCH (10:18)
[2023-03-25] MEDS: ASPIRIN 81 MG CHEWABLE TABLETS PO SCH (10:18)
[2023-03-25] MEDS: amLODIPine BESYLATE 10 MG TABLET (FP) PO SCH (10:18)
[2023-03-25] MEDS: NICOTINE 10 MG CARTRIDGE (INHALER) IH SCH (10:19)
[2023-03-25] MEDS: PRENATAL VITAMINS W/ FOLIC ACID TABLET (FP) PO SCH (10:19)
[2023-03-25] MEDS: FLUTICASONE/UMECLIDIN/VILANTER(100-62.5-25 TRELEGY ELLIPTA) INAHLER IH SCH (10:21)
[2023-03-25] MEDS: TICAGRELOR 90 MG TABLET PO SCH ×2 (10:23→21:32)
[2023-03-25] MEDS ORDERED: INSULIN (NOVOLOG) ASPART 100 UNITS/ML 10ML VIAL ONE (16:47)
[2023-03-25] MEDS: THIAMINE HCL 100 MG TABLET (FP) PO SCH (21:29)
[2023-03-25] MEDS: SUVOREXANT 5 MG TABLET PO PRN (21:31)
[2023-03-25 23:16] VITALS: RESP 18
[2023-03-26] MEDS: ACETAMINOPHEN 325 MG TABLET (FP) PO PRN (03:39)
[2023-03-26] MEDS: metFORMIN HCL 500 MG TABLET (FP) PO SCH ×2 (06:16→16:56)
[2023-03-26] MEDS: GABAPENTIN 300 MG CAPSULE PO SCH ×3 (06:16→21:20)
[2023-03-26] MEDS: methaDONE 40 MG, methaDONE 30 MG PO SCH (06:16)
[2023-03-26] MEDS: INSULIN SLIDING SCALE (NOVOLOG) 1 VIAL SQ SCH ×2 (06:19→16:56)
[2023-03-26] MEDS: BICTEGRAV/EMTRICIT/TENOFOV (BIKTARVY) 50-200-25 MG TABLET PO SCH (07:03)
[2023-03-26] MEDS: PRENATAL VITAMINS W/ FOLIC ACID TABLET (FP) PO SCH (10:19)
[2023-03-26] MEDS: ASPIRIN 81 MG CHEWABLE TABLETS PO SCH (10:20)
[2023-03-26] MEDS: TICAGRELOR 90 MG TABLET PO SCH ×3 (10:20→22:26)
[2023-03-26] MEDS: LOSARTAN POTASSIUM 50 MG TABLET PO SCH (10:20)
[2023-03-26] MEDS: cloNIDine HCL 0.1 MG TABLET PO SCH ×2 (10:20→21:21)
[2023-03-26] MEDS: amLODIPine BESYLATE 10 MG TABLET (FP) PO SCH (10:20)
[2023-03-26] MEDS: NICOTINE 14 MG/24 HOURS TOPICAL PATCH TD SCH (10:21)
[2023-03-26] MEDS: NICOTINE 10 MG CARTRIDGE (INHALER) IH SCH (10:23)
[2023-03-26] MEDS: FLUTICASONE/UMECLIDIN/VILANTER(100-62.5-25 TRELEGY ELLIPTA) INAHLER IH SCH (10:24)
[2023-03-26] MEDS ORDERED: INSULIN (NOVOLOG) ASPART 100 UNITS/ML 10ML VIAL ONE (16:54)
[2023-03-26] MEDS: THIAMINE HCL 100 MG TABLET (FP) PO SCH (21:20)
[2023-03-26] MEDS: hydrOXYzine PAMOATE 25 MG CAPSULE (FP) PO PRN (21:25)
[2023-03-26] MEDS ORDERED: SUVOREXANT 5 MG TABLET PO PRN (22:10)
[2023-03-26] MEDS: ALBUTEROL SO4 HFA INHALER IH PRN (22:45)
[2023-03-27] MEDS ORDERED: methaDONE 40 MG, methaDONE 30 MG PO SCH (06:00)
[2023-03-27] MEDS: metFORMIN HCL 500 MG TABLET (FP) PO SCH ×2 (06:50→19:36)
[2023-03-27] MEDS: GABAPENTIN 300 MG CAPSULE PO SCH ×2 (06:50→19:37)
[2023-03-27] MEDS: INSULIN SLIDING SCALE (NOVOLOG) 1 VIAL SQ SCH ×2 (06:51→19:37)
[2023-03-27] MEDS: ALBUTEROL SO4 HFA INHALER IH PRN (06:54)
[2023-03-27] MEDS: BICTEGRAV/EMTRICIT/TENOFOV (BIKTARVY) 50-200-25 MG TABLET PO SCH (07:24)
[2023-03-27 10:33] VITALS: BP 117/76; PULSE 92; TEMP 97.3
[2023-03-27] MEDS: cloNIDine HCL 0.1 MG TABLET PO SCH (10:39)
[2023-03-27] MEDS: LOSARTAN POTASSIUM 50 MG TABLET PO SCH (10:39)
[2023-03-27] MEDS: amLODIPine BESYLATE 10 MG TABLET (FP) PO SCH (10:40)
[2023-03-27] MEDS: PRENATAL VITAMINS W/ FOLIC ACID TABLET (FP) PO SCH (10:40)
[2023-03-27] MEDS: TICAGRELOR 90 MG TABLET PO SCH (10:40)
[2023-03-27] MEDS: NICOTINE 14 MG/24 HOURS TOPICAL PATCH TD SCH (10:40)
[2023-03-27] MEDS: NICOTINE 10 MG CARTRIDGE (INHALER) IH SCH (10:40)
[2023-03-27] MEDS: ASPIRIN 81 MG CHEWABLE TABLETS PO SCH (10:40)
[2023-03-27] MEDS: FLUTICASONE/UMECLIDIN/VILANTER(100-62.5-25 TRELEGY ELLIPTA) INAHLER IH SCH (10:43)
[2023-03-27] MEDS ORDERED: SUVOREXANT 5 MG TABLET PO PRN (22:00)
[2023-03-28] MEDS: TICAGRELOR 90 MG TABLET PO SCH (00:43)
[2023-03-28] MEDS: cloNIDine HCL 0.1 MG TABLET PO SCH (00:43)
[2023-03-28] MEDS: GABAPENTIN 300 MG CAPSULE PO SCH (00:43)
[2023-03-28] MEDS: THIAMINE HCL 100 MG TABLET (FP) PO SCH (00:44)
== END 2023-03-27 | disposition short-term general hospital (02) | DRG 772 ==
LOC: YASAS 14:48 → Y5N 17:59
PROVIDERS: ADMIT Allergy & Immunology; ATTEND Psychiatry & Neurology Pain Medicine
PROC: HZ42ZZZ Group Counseling for Substance Abuse Treatment, Cognitive-Behavioral (ICD-10-PCS; principal; 2023-03-18)
DX: F10.20 Alcohol dependence, uncomplicated (principal); F14.20 Cocaine dependence, uncomplicated; F11.20 Opioid dependence, uncomplicated; F17.210 Nicotine dependence, cigarettes, uncomplicated; F31.9 Bipolar disorder, unspecified; F60.3 Borderline personality disorder; F41.1 Generalized anxiety disorder; B20 Human immunodeficiency virus [HIV] disease; I25.10 Atherosclerotic heart disease of native coronary artery without angina pectoris; I10 Essential (primary) hypertension; I25.2 Old myocardial infarction; Z95.5 Presence of coronary angioplasty implant and graft; E11.9 Type 2 diabetes mellitus without complications; Z79.84 Long term (current) use of oral hypoglycemic drugs; F19.282 Other psychoactive substance dependence with psychoactive substance-induced sleep disorder; E88.09 Other disorders of plasma-protein metabolism, not elsewhere classified; M32.14 Glomerular disease in systemic lupus erythematosus; J44.9 Chronic obstructive pulmonary disease, unspecified; R06.02 Shortness of breath; R94.31 Abnormal electrocardiogram [ECG] [EKG]; R63.4 Abnormal weight loss; Z68.1 Body mass index [BMI] 19.9 or less, adult; Z88.0 Allergy status to penicillin
CPT/HCPCS: 26055; 36415; 71046-TC-FY; 80053; 81003; 82962; 85027; 86780; 86803; 93005; 93010; C9803-CS; U0003; U0005

== ENCOUNTER 2023-03-27 12:22 | Inpatient (IN) | payer OTHER ==
[2023-03-27 13:59] LABS: BASO % 0.4 % (0-2.0); EOS % 0.9 % (0-4.5); HEMATOCRIT 41.8 % (32.4-45.2); HEMOGLOBIN 14.2 GM/dL (10.7-15.3); MCH 34.2 pg (25.7-33.7); MCHC 33.9 g/dl (32.0-36.0); MEAN CELL VOLUME 100.9 fl (80-96); MEAN PLT VOLUME 8.3 fl (7.5-11.1); MONO % 6.8 % (3.8-10.2); NEUT % 80.9 % (42.8-82.8); PLATELET COUNT 497 10^3/uL (134-434); RBC 4.14 M/mm3 (3.60-5.2); RDW 15.3 % (11.6-15.6); WHITE BLOOD COUNT 9.8 K/mm3 (4.0-10.0)
[2023-03-27 14:08] LABS: INR 0.9 (0.83-1.09); PROTHROMBIN TIME (PATIENT) 10.4 SEC (9.7-13.0)
[2023-03-27 14:09] LABS: CHLORIDE 103 mmol/L (98-107); SODIUM 132 mmol/L (136-145)
[2023-03-27 14:11] LABS: ACTIVATED PTT 34.2 SECONDS (25.2-36.5); CALCIUM 8.9 mg/dL (8.5-10.1)
[2023-03-27 14:12] LABS: CO2 27 mmol/L (21-32); GLUCOSE,RANDOM 214 mg/dL (74-106); LIPASE 205 U/L (73-393); MAGNESIUM 2.8 mg/dL (1.8-2.4)
[2023-03-27 14:15] LABS: CREATININE 2.1 mg/dL (0.55-1.3); SGOT/AST 16 U/L (15-37); SGPT/ALT 20 U/L (13-61)
[2023-03-27 14:16] LABS: BILIRUBIN,TOTAL 0.2 mg/dL (0.2-1); TOT PROT 6.8 g/dl (6.4-8.2)
[2023-03-27 14:17] LABS: ALK PHOS 99 U/L (45-117)
[2023-03-27] MEDS ORDERED: LACTATED RINGERS SOLUTION 1000 ML INFUS.BAG IV ONE ×2 (14:28→17:18)
[2023-03-27 14:29] LABS: ALBUMIN 2.5 g/dl (3.4-5.0); ANION GAP 2 MMOL/L (8-16); POTASSIUM 7.8 mmol/L (3.5-5.1)
[2023-03-27 14:32] LABS: VENOUS BASE EXCESS -1.2 mmol/L (-2-2); VENOUS O2 SATURATION 34.5 % (70-80); VENOUS PCO2 53.9 mmHg (38-52); VENOUS PH 7.303 (7.310-7.410)
[2023-03-27] MEDS ORDERED: INSULIN REGULAR HUMAN 100 UNITS/ML *VIAL IVPUSH ONE ×2 (14:32→23:30)
[2023-03-27] MEDS ORDERED: SODIUM ZIRCONIUM CYCLOSILICATE (LOKELMA) 5 GM PACKET PO ONE (14:32)
[2023-03-27] MEDS ORDERED: CALCIUM GLUCONATE 10% - 1,000 MG/10 ML VIAL IVPB ONE ×3 (14:32→23:30)
[2023-03-27] MEDS ORDERED: VANCOMYCIN 1 GM in D5W (PRE-DOCKED) 1,000 MG/250 ML (RESTRICTED TO ID ONLY IVPB ONE (14:37)
[2023-03-27] MEDS ORDERED: CEFEPIME HCL/D5W 1 GM/50 ML BAG IVPB ONE (14:37)
[2023-03-27] MEDS ORDERED: VANCOMYCIN/WATER FOR INJ (PEG) 1,000 MG/200 ML BAG IVPB ONE (14:39)
[2023-03-27] MEDS ORDERED: CEFEPIME 1 GM/100 ML BAG IVPB ONE (14:39)
[2023-03-27] MEDS ORDERED: SODIUM ZIRCONIUM CYCLOSILICATE (LOKELMA) 5 GM PACKET ONE (14:39)
[2023-03-27] MEDS ORDERED: INSULIN REGULAR HUMAN 100 UNITS/ML *VIAL ONE (14:41)
[2023-03-27] MEDS ORDERED: CALCIUM GLUCONATE 10% - 1,000 MG/10 ML VIAL ONE (14:42)
[2023-03-27 16:01] LABS: N-TERMINAL BNP 774.9 pg/ml (5-125)
[2023-03-27] MEDS ORDERED: CALCIUM GLUC IN NACL, ISO-OSM 1 GM/50 ML BAG IVPB ONE (16:38)
[2023-03-27 16:53] LABS: CHLORIDE 106 mmol/L (98-107); SODIUM 133 mmol/L (136-145)
[2023-03-27 16:54] LABS: CALCIUM 9.5 mg/dL (8.5-10.1); CO2 23 mmol/L (21-32); GLUCOSE,RANDOM 74 mg/dL (74-106)
[2023-03-27 16:55] LABS: BLOOD UREA NITROGEN 42.2 mg/dL (7-18)
[2023-03-27 16:58] LABS: CREATININE 1.9 mg/dL (0.55-1.3)
[2023-03-27 17:02] LABS: N-TERMINAL BNP 768.2 pg/ml (5-125)
[2023-03-27 17:11] LABS: ANION GAP 5 MMOL/L (8-16)
[2023-03-27] MEDS ORDERED: DEXTROSE 50%-WATER - 25 GM/50 ML VIAL IVPUSH ONE ×2 (17:18→23:30)
[2023-03-27] MEDS ORDERED: DEXTROSE 50%-WATER 25 GM/50 ML DISP.SYRIN ONE ×2 (17:27→23:22)
[2023-03-27] MEDS ORDERED: ACETAMINOPHEN 1000 MG/100 ML BAG IVPB ONE ×2 (18:50→18:51)
[2023-03-27] MEDS ORDERED: ACETAMINOPHEN INJECTION 100 ML IVPB ONE (18:54)
[2023-03-27 20:46] LABS: CALCIUM 8.8 mg/dL (8.5-10.1); CHLORIDE 106 mmol/L (98-107); SODIUM 132 mmol/L (136-145)
[2023-03-27 20:47] LABS: BLOOD UREA NITROGEN 37.6 mg/dL (7-18); CO2 21 mmol/L (21-32); GLUCOSE,RANDOM 189 mg/dL (74-106)
[2023-03-27] MEDS ORDERED: ACETAMINOPHEN 325 MG TABLET (FP) PO PRN (20:48)
[2023-03-27 20:50] LABS: CREATININE 1.8 mg/dL (0.55-1.3)
[2023-03-27 21:16] LABS: ANION GAP 5 MMOL/L (8-16); POTASSIUM 7.5 mmol/L (3.5-5.1)
[2023-03-27] MEDS ORDERED: buPROPion HCL 75 MG TABLET PO SCH (22:00)
[2023-03-27 22:13] LABS: EPI CELLS 3 /uL (0-25.1); HYALINE CASTS 0 /uL (0-3.1); URINE APPEARANCE CLEAR; URINE BACTERIA 1 /uL (0-1359); URINE BILIRUBIN NEGATIVE (NEGATIVE); URINE COLOR YELLOW; URINE GLUCOSE (UA) NEGATIVE (NEGATIVE); URINE KETONE NEGATIVE (NEGATIVE); URINE LEUK ESTERASE NEGATIVE (NEGATIVE); URINE NITRITE NEGATIVE (NEGATIVE); URINE PROTEIN 2+ (NEGATIVE); URINE RBC 14 /uL (0-23.9); URINE UROBILINOGEN 0.2 mg/dL (0.2-1.0); URINE WBC 4 /uL (0-25.8)
[2023-03-27] MEDS: MUPIROCIN 2% TOPICAL OINTMENT FOR DECOLONIZATION NS SCH (22:14)
[2023-03-27] MEDS: CHLORHEXIDINE GLUCONATE 4% CLEANSER FOR DECOLONIZATION TP SCH (22:15)
[2023-03-27] MEDS: traZODone HCL 50 MG TABLET (FP) PO SCH (22:17)
[2023-03-27] MEDS: CARVEDILOL 6.25 MG TABLET (FP) PO SCH (22:18)
[2023-03-27] MEDS: HEPARIN NA (PORCINE) 5,000 UNITS/ML 1ML VIAL SQ SCH (22:18)
[2023-03-27] MEDS: TICAGRELOR 60 MG TABLET PO SCH (22:37)
[2023-03-27 22:41] LABS: CHLORIDE 106 mmol/L (98-107); SODIUM 135 mmol/L (136-145)
[2023-03-27 22:44] LABS: CALCIUM 9.4 mg/dL (8.5-10.1); CO2 25 mmol/L (21-32); GLUCOSE,RANDOM 173 mg/dL (74-106)
[2023-03-27 22:45] LABS: BLOOD UREA NITROGEN 38.5 mg/dL (7-18)
[2023-03-27 22:46] LABS: CREATININE 1.9 mg/dL (0.55-1.3)
[2023-03-27] MEDS ORDERED: ALBUTEROL SO4 0.083% IH SOL 2.5 MG/3 ML VIAL.NEB. NEB PRN (22:48)
[2023-03-27 22:59] LABS: CREATININE, URINE RANDOM < 13.0 mg/dL (30-150)
[2023-03-27 23:00] LABS: ANION GAP 4 MMOL/L (8-16); POTASSIUM 6.7 mmol/L (3.5-5.1)
[2023-03-27] MEDS ORDERED: SODIUM BICARBONATE 8.4% 50 MEQ/50 ML DISP.SYRIN IVPUSH ONE (23:30)
[2023-03-27] MEDS: ATORVASTATIN CA 40 MG TABLET (FP) PO SCH (23:37)
[2023-03-27] MEDS: SODIUM CHLORIDE 1,000 ML IV SCH (23:37)
[2023-03-28] MEDS: CEFEPIME 1 GM in DEXTROSE 5%-WATER 100 ML IVPB SCH ×2 (02:03→16:00)
[2023-03-28 02:56] LABS: POTASSIUM 4.7 mmol/L (3.5-5.1)
[2023-03-28 02:57] LABS: CALCIUM 8.2 mg/dL (8.5-10.1)
[2023-03-28 02:58] LABS: BLOOD UREA NITROGEN 34.8 mg/dL (7-18); MAGNESIUM 2.1 mg/dL (1.8-2.4)
[2023-03-28 03:01] LABS: CREATININE 1.7 mg/dL (0.55-1.3); PHOSPHOROUS 5.1 mg/dL (2.5-4.9)
[2023-03-28 07:19] LABS: HEMATOCRIT 39.7 % (32.4-45.2); HEMOGLOBIN 13.6 GM/dL (10.7-15.3); MCH 34.4 pg (25.7-33.7); MCHC 34.3 g/dl (32.0-36.0); MEAN CELL VOLUME 100.3 fl (80-96); MEAN PLT VOLUME 8.4 fl (7.5-11.1); PLATELET COUNT 464 10^3/uL (134-434); RBC 3.95 M/mm3 (3.60-5.2); RDW 15.3 % (11.6-15.6); WHITE BLOOD COUNT 9.3 K/mm3 (4.0-10.0)
[2023-03-28 07:55] LABS: POTASSIUM 5.6 mmol/L (3.5-5.1)
[2023-03-28 07:59] LABS: BLOOD UREA NITROGEN 35.7 mg/dL (7-18)
[2023-03-28 08:02] LABS: CREATININE 1.9 mg/dL (0.55-1.3)
[2023-03-28] MEDS ORDERED: SODIUM BICARBONATE 8.4% 50 MEQ/50 ML DISP.SYRIN IVPUSH ONE ×2 (08:26→13:21)
[2023-03-28] MEDS ORDERED: INSULIN REGULAR HUMAN 100 UNITS/ML *VIAL IVPUSH ONE ×2 (08:26→13:21)
[2023-03-28] MEDS ORDERED: DEXTROSE 50%-WATER - 25 GM/50 ML VIAL IVPUSH ONE (08:27)
[2023-03-28] MEDS ORDERED: DEXTROSE 50%-WATER 25 GM/50 ML DISP.SYRIN ONE (08:45)
[2023-03-28] MEDS: BICTEGRAV/EMTRICIT/TENOFOV (BIKTARVY) 50-200-25 MG TABLET PO SCH (08:49)
[2023-03-28] MEDS: methaDONE 40 MG, methaDONE 30 MG PO SCH (09:34)
[2023-03-28] MEDS: ASPIRIN COATED 81 MG TABLET.EC PO SCH (09:37)
[2023-03-28] MEDS: PANTOPRAZOLE 40 MG TABLET PO SCH (09:37)
[2023-03-28] MEDS: CARVEDILOL 6.25 MG TABLET (FP) PO SCH ×2 (09:37→21:08)
[2023-03-28] MEDS: amLODIPine BESYLATE 5 MG TABLET (FP) PO SCH (09:37)
[2023-03-28] MEDS: SODIUM ZIRCONIUM CYCLOSILICATE (LOKELMA) 5 GM PACKET PO SCH (09:37)
[2023-03-28] MEDS: MUPIROCIN 2% TOPICAL OINTMENT FOR DECOLONIZATION NS SCH ×2 (09:38→21:09)
[2023-03-28] MEDS: TICAGRELOR 60 MG TABLET PO SCH ×2 (09:38→21:08)
[2023-03-28] MEDS: HEPARIN NA (PORCINE) 5,000 UNITS/ML 1ML VIAL SQ SCH ×2 (09:38→21:09)
[2023-03-28] MEDS ORDERED: CLOPIDOGREL BISULFATE 75 MG TABLET (FP) PO SCH (10:00)
[2023-03-28] MEDS ORDERED: methaDONE HCL 10 MG TABLET (FOR DETOX USE ONLY) PO SCH (10:00)
[2023-03-28 12:26] LABS: POTASSIUM 5.9 mmol/L (3.5-5.1)
[2023-03-28 12:27] LABS: CALCIUM 8.5 mg/dL (8.5-10.1)
[2023-03-28 12:28] LABS: BLOOD UREA NITROGEN 32.2 mg/dL (7-18)
[2023-03-28 12:31] LABS: CREATININE 1.8 mg/dL (0.55-1.3)
[2023-03-28] MEDS ORDERED: CALCIUM GLUCONATE 10% - 1,000 MG/10 ML VIAL IVPB ONE (13:21)
[2023-03-28] MEDS ORDERED: SODIUM ZIRCONIUM CYCLOSILICATE (LOKELMA) 5 GM PACKET PO ONE (14:32)
[2023-03-28 15:32] LABS: POTASSIUM 4.7 mmol/L (3.5-5.1)
[2023-03-28 15:33] LABS: CALCIUM 8.4 mg/dL (8.5-10.1)
[2023-03-28 15:34] LABS: BLOOD UREA NITROGEN 28.2 mg/dL (7-18)
[2023-03-28 15:37] LABS: CREATININE 1.8 mg/dL (0.55-1.3)
[2023-03-28] MEDS: NICOTINE 7 MG/24 HOURS TOPICAL PATCH TD SCH (17:17)
[2023-03-28] MEDS: MULTIVITAMINS (DAILY MVI) TABLET (FP) PO SCH (17:17)
[2023-03-28 20:15] LABS: POTASSIUM 4.9 mmol/L (3.5-5.1)
[2023-03-28 20:16] LABS: CALCIUM 8.1 mg/dL (8.5-10.1)
[2023-03-28 20:17] LABS: BLOOD UREA NITROGEN 26.9 mg/dL (7-18)
[2023-03-28 20:20] LABS: CREATININE 1.8 mg/dL (0.55-1.3)
[2023-03-28] MEDS: traZODone HCL 50 MG TABLET (FP) PO SCH (21:08)
[2023-03-28] MEDS: ATORVASTATIN CA 40 MG TABLET (FP) PO SCH (21:08)
[2023-03-28] MEDS: CHLORHEXIDINE GLUCONATE 4% CLEANSER FOR DECOLONIZATION TP SCH (21:09)
[2023-03-28] MEDS: SODIUM CHLORIDE 1,000 ML IV SCH (21:10)
[2023-03-29] MEDS: SODIUM CHLORIDE 1,000 ML IV SCH ×2 (06:00→23:40)
[2023-03-29] MEDS: methaDONE 40 MG, methaDONE 30 MG PO SCH (06:02)
[2023-03-29 07:33] LABS: BASO % 0.8 % (0-2.0); EOS % 2.9 % (0-4.5); HEMATOCRIT 38.4 % (32.4-45.2); LYMPH % 14.1 % (8-40); MCH 33.8 pg (25.7-33.7); MCHC 33.9 g/dl (32.0-36.0); MEAN CELL VOLUME 99.8 fl (80-96); MEAN PLT VOLUME 8.5 fl (7.5-11.1); NEUT % 73.2 % (42.8-82.8); PLATELET COUNT 472 10^3/uL (134-434); RBC 3.85 M/mm3 (3.60-5.2); RDW 15.1 % (11.6-15.6); WHITE BLOOD COUNT 8.9 K/mm3 (4.0-10.0)
[2023-03-29 07:38] LABS: POTASSIUM 5.2 mmol/L (3.5-5.1)
[2023-03-29 07:40] LABS: CALCIUM 8.7 mg/dL (8.5-10.1)
[2023-03-29 07:41] LABS: BLOOD UREA NITROGEN 21.6 mg/dL (7-18); MAGNESIUM 1.9 mg/dL (1.8-2.4)
[2023-03-29 07:44] LABS: CREATININE 1.7 mg/dL (0.55-1.3); PHOSPHOROUS 3.8 mg/dL (2.5-4.9)
[2023-03-29 07:45] LABS: BILIRUBIN,TOTAL 0.2 mg/dL (0.2-1); TOT PROT 5.9 g/dl (6.4-8.2)
[2023-03-29 07:48] LABS: ALBUMIN 1.9 g/dl (3.4-5.0)
[2023-03-29] MEDS: SODIUM ZIRCONIUM CYCLOSILICATE (LOKELMA) 5 GM PACKET PO SCH (09:02)
[2023-03-29] MEDS: HEPARIN NA (PORCINE) 5,000 UNITS/ML 1ML VIAL SQ SCH ×2 (09:03→22:18)
[2023-03-29] MEDS: amLODIPine BESYLATE 5 MG TABLET (FP) PO SCH (09:04)
[2023-03-29] MEDS: buPROPion HCL 75 MG TABLET PO SCH (09:04)
[2023-03-29] MEDS: ASPIRIN COATED 81 MG TABLET.EC PO SCH (09:04)
[2023-03-29] MEDS: BICTEGRAV/EMTRICIT/TENOFOV (BIKTARVY) 50-200-25 MG TABLET PO SCH (09:04)
[2023-03-29] MEDS: PANTOPRAZOLE 40 MG TABLET PO SCH (09:04)
[2023-03-29] MEDS: MULTIVITAMINS (DAILY MVI) TABLET (FP) PO SCH (09:04)
[2023-03-29] MEDS: TICAGRELOR 60 MG TABLET PO SCH ×2 (09:05→22:17)
[2023-03-29] MEDS: CARVEDILOL 6.25 MG TABLET (FP) PO SCH ×2 (09:05→22:17)
[2023-03-29] MEDS: NICOTINE 7 MG/24 HOURS TOPICAL PATCH TD SCH (09:05)
[2023-03-29] MEDS: MUPIROCIN 2% TOPICAL OINTMENT FOR DECOLONIZATION NS SCH ×2 (09:05→22:11)
[2023-03-29] MEDS: CEFEPIME 1 GM in DEXTROSE 5%-WATER 100 ML IVPB SCH ×2 (11:17→11:19)
[2023-03-29] MEDS: CEFTRIAXONE 1 GM in DEXTROSE 5%-WATER - 50 ML IVPB SCH (12:20)
[2023-03-29 15:47] VITALS: BMI 20.2
[2023-03-29] MEDS: traZODone HCL 50 MG TABLET (FP) PO SCH (22:18)
[2023-03-29] MEDS: CHLORHEXIDINE GLUCONATE 4% CLEANSER FOR DECOLONIZATION TP SCH (22:19)
[2023-03-29] MEDS: ATORVASTATIN CA 40 MG TABLET (FP) PO SCH (22:19)
[2023-03-30 05:05] LABS: POTASSIUM 4.5 mmol/L (3.5-5.1)
[2023-03-30 05:07] LABS: ALBUMIN 2.3 g/dl (3.4-5.0); BLOOD UREA NITROGEN 15.4 mg/dL (7-18); CALCIUM 9.1 mg/dL (8.5-10.1)
[2023-03-30 05:10] LABS: CREATININE 1.3 mg/dL (0.55-1.3)
[2023-03-30 05:12] LABS: BILIRUBIN,TOTAL 0.2 mg/dL (0.2-1); TOT PROT 6.9 g/dl (6.4-8.2)
[2023-03-30] MEDS: methaDONE 40 MG, methaDONE 30 MG PO SCH (06:13)
[2023-03-30] MEDS: SODIUM ZIRCONIUM CYCLOSILICATE (LOKELMA) 5 GM PACKET PO SCH (09:11)
[2023-03-30] MEDS: HEPARIN NA (PORCINE) 5,000 UNITS/ML 1ML VIAL SQ SCH ×2 (09:11→21:23)
[2023-03-30] MEDS: BICTEGRAV/EMTRICIT/TENOFOV (BIKTARVY) 50-200-25 MG TABLET PO SCH (09:12)
[2023-03-30] MEDS: MULTIVITAMINS (DAILY MVI) TABLET (FP) PO SCH (09:12)
[2023-03-30] MEDS: ASPIRIN COATED 81 MG TABLET.EC PO SCH (09:12)
[2023-03-30] MEDS: amLODIPine BESYLATE 5 MG TABLET (FP) PO SCH (09:12)
[2023-03-30] MEDS: CARVEDILOL 6.25 MG TABLET (FP) PO SCH ×2 (09:12→21:23)
[2023-03-30] MEDS: buPROPion HCL 75 MG TABLET PO SCH (09:13)
[2023-03-30] MEDS: TICAGRELOR 60 MG TABLET PO SCH ×2 (09:14→21:24)
[2023-03-30] MEDS: NICOTINE 7 MG/24 HOURS TOPICAL PATCH TD SCH (09:19)
[2023-03-30] MEDS: PANTOPRAZOLE 40 MG TABLET PO SCH (09:19)
[2023-03-30] MEDS: MUPIROCIN 2% TOPICAL OINTMENT FOR DECOLONIZATION NS SCH (09:23)
[2023-03-30] MEDS: CEFTRIAXONE 1 GM in DEXTROSE 5%-WATER - 50 ML IVPB SCH (09:24)
[2023-03-30] MEDS ORDERED: ALBUTEROL SO4 HFA INHALER IH PRN (18:03)
[2023-03-30] MEDS ORDERED: ACETAMINOPHEN 325 MG TABLET (FP) PO PRN (19:26)
[2023-03-30] MEDS: BUDESONIDE/FORMETEROL FUMARATE 80/4.5 mcg INHALER IH SCH ×2 (19:42→21:23)
[2023-03-30] MEDS: traZODone HCL 50 MG TABLET (FP) PO SCH (21:23)
[2023-03-30] MEDS: ATORVASTATIN CA 40 MG TABLET (FP) PO SCH (21:24)
[2023-03-30] MEDS ORDERED: MUPIROCIN 2% TOPICAL OINTMENT FOR DECOLONIZATION NS SCH (22:00)
[2023-03-30] MEDS ORDERED: CHLORHEXIDINE GLUCONATE 4% CLEANSER FOR DECOLONIZATION TP SCH (22:00)
[2023-03-31 03:40] VITALS: RESP 18
[2023-03-31] MEDS: methaDONE 40 MG, methaDONE 30 MG PO SCH (05:49)
[2023-03-31 08:46] LABS: BASO % 0.8 % (0-2.0); EOS % 3.2 % (0-4.5); HEMATOCRIT 39.3 % (32.4-45.2); HEMOGLOBIN 13.2 GM/dL (10.7-15.3); LYMPH % 16.2 % (8-40); MCH 33.6 pg (25.7-33.7); MCHC 33.4 g/dl (32.0-36.0); MEAN CELL VOLUME 100.5 fl (80-96); MEAN PLT VOLUME 8.4 fl (7.5-11.1); MONO % 7.6 % (3.8-10.2); NEUT % 72.2 % (42.8-82.8); PLATELET COUNT 471 10^3/uL (134-434); RBC 3.91 M/mm3 (3.60-5.2); RDW 14.4 % (11.6-15.6); WHITE BLOOD COUNT 7.8 K/mm3 (4.0-10.0)
[2023-03-31 08:59] LABS: POTASSIUM 4.6 mmol/L (3.5-5.1)
[2023-03-31 09:05] LABS: ALBUMIN 1.9 g/dl (3.4-5.0); BLOOD UREA NITROGEN 15.6 mg/dL (7-18); CALCIUM 8.9 mg/dL (8.5-10.1); MAGNESIUM 1.9 mg/dL (1.8-2.4)
[2023-03-31 09:08] LABS: CREATININE 1.1 mg/dL (0.55-1.3)
[2023-03-31 09:10] LABS: BILIRUBIN,TOTAL 0.5 mg/dL (0.2-1); TOT PROT 5.8 g/dl (6.4-8.2)
[2023-03-31] MEDS: buPROPion HCL 75 MG TABLET PO SCH (09:34)
[2023-03-31] MEDS: MULTIVITAMINS (DAILY MVI) TABLET (FP) PO SCH (09:34)
[2023-03-31] MEDS: ASPIRIN COATED 81 MG TABLET.EC PO SCH (09:34)
[2023-03-31] MEDS: CARVEDILOL 6.25 MG TABLET (FP) PO SCH ×2 (09:34→21:22)
[2023-03-31] MEDS: BICTEGRAV/EMTRICIT/TENOFOV (BIKTARVY) 50-200-25 MG TABLET PO SCH (09:34)
[2023-03-31] MEDS: PANTOPRAZOLE 40 MG TABLET PO SCH (09:34)
[2023-03-31] MEDS: amLODIPine BESYLATE 5 MG TABLET (FP) PO SCH (09:34)
[2023-03-31] MEDS: NICOTINE 7 MG/24 HOURS TOPICAL PATCH TD SCH (09:34)
[2023-03-31] MEDS: HEPARIN NA (PORCINE) 5,000 UNITS/ML 1ML VIAL SQ SCH ×2 (09:35→21:23)
[2023-03-31] MEDS: TICAGRELOR 60 MG TABLET PO SCH ×2 (09:36→21:22)
[2023-03-31] MEDS: CEFTRIAXONE 1 GM in DEXTROSE 5%-WATER - 50 ML IVPB SCH (09:36)
[2023-03-31] MEDS: BUDESONIDE/FORMETEROL FUMARATE 80/4.5 mcg INHALER IH SCH ×2 (09:43→21:24)
[2023-03-31] MEDS: ALBUTEROL SO4 0.083% IH SOL 2.5 MG/3 ML VIAL.NEB. NEB PRN ×2 (13:12→19:10)
[2023-03-31] MEDS: ATORVASTATIN CA 40 MG TABLET (FP) PO SCH (21:22)
[2023-03-31] MEDS: traZODone HCL 50 MG TABLET (FP) PO SCH (21:22)
[2023-04-01] MEDS: methaDONE 40 MG, methaDONE 30 MG PO SCH (05:13)
[2023-04-01] MEDS: BICTEGRAV/EMTRICIT/TENOFOV (BIKTARVY) 50-200-25 MG TABLET PO SCH (08:19)
[2023-04-01] MEDS: ALBUTEROL SO4 0.083% IH SOL 2.5 MG/3 ML VIAL.NEB. NEB PRN ×2 (08:19→16:08)
[2023-04-01] MEDS: amLODIPine BESYLATE 5 MG TABLET (FP) PO SCH (09:55)
[2023-04-01] MEDS: buPROPion HCL 75 MG TABLET PO SCH (09:55)
[2023-04-01] MEDS: BUDESONIDE/FORMETEROL FUMARATE 80/4.5 mcg INHALER IH SCH (09:55)
[2023-04-01] MEDS: MULTIVITAMINS (DAILY MVI) TABLET (FP) PO SCH (09:55)
[2023-04-01] MEDS: PANTOPRAZOLE 40 MG TABLET PO SCH (09:55)
[2023-04-01] MEDS: CEFTRIAXONE 1 GM in DEXTROSE 5%-WATER - 50 ML IVPB SCH (09:55)
[2023-04-01] MEDS: ASPIRIN COATED 81 MG TABLET.EC PO SCH (09:55)
[2023-04-01] MEDS: CARVEDILOL 6.25 MG TABLET (FP) PO SCH (09:55)
[2023-04-01] MEDS: NICOTINE 7 MG/24 HOURS TOPICAL PATCH TD SCH (09:55)
[2023-04-01] MEDS: HEPARIN NA (PORCINE) 5,000 UNITS/ML 1ML VIAL SQ SCH (09:56)
[2023-04-01] MEDS: TICAGRELOR 60 MG TABLET PO SCH (09:56)
[2023-04-01 10:42] LABS: BASO % 0.6 % (0-2.0); EOS % 2.1 % (0-4.5); HEMATOCRIT 40.5 % (32.4-45.2); HEMOGLOBIN 13.5 GM/dL (10.7-15.3); LYMPH % 22.1 % (8-40); MCHC 33.3 g/dl (32.0-36.0); MEAN CELL VOLUME 99.2 fl (80-96); MEAN PLT VOLUME 8.1 fl (7.5-11.1); MONO % 8.7 % (3.8-10.2); NEUT % 66.5 % (42.8-82.8); PLATELET COUNT 479 10^3/uL (134-434); RBC 4.09 M/mm3 (3.60-5.2); RDW 14.8 % (11.6-15.6); WHITE BLOOD COUNT 6.7 K/mm3 (4.0-10.0)
[2023-04-01 10:55] LABS: CALCIUM 9.1 mg/dL (8.5-10.1)
[2023-04-01 10:56] LABS: ALBUMIN 1.9 g/dl (3.4-5.0); BLOOD UREA NITROGEN 14.9 mg/dL (7-18)
[2023-04-01 10:59] LABS: CREATININE 1.2 mg/dL (0.55-1.3)
[2023-04-01 11:00] LABS: TOT PROT 5.8 g/dl (6.4-8.2)
[2023-04-01 11:01] LABS: BILIRUBIN,TOTAL 0.1 mg/dL (0.2-1)
[2023-04-01] MEDS ORDERED: SODIUM CHLORIDE 0.45% 1,000 ML IV SCH (14:30)
[2023-04-01 14:38] VITALS: PULSE 60
[2023-04-01 17:48] VITALS: BP 155/74; TEMP 99
== END 2023-04-01 19:10 | disposition other institution (70) | DRG 892 ==
LOC: JER 12:22 → JERBED 19:20 → JICU 21:29 → J5S 03-30 17:05
PROVIDERS: ADMIT Internal Medicine
DX: N17.9 Acute kidney failure, unspecified (principal); M32.14 Glomerular disease in systemic lupus erythematosus; B20 Human immunodeficiency virus [HIV] disease; E78.5 Hyperlipidemia, unspecified; I25.10 Atherosclerotic heart disease of native coronary artery without angina pectoris; I44.4 Left anterior fascicular block; J32.8 Other chronic sinusitis; J20.9 Acute bronchitis, unspecified; R50.9 Fever, unspecified; E03.9 Hypothyroidism, unspecified; I42.1 Obstructive hypertrophic cardiomyopathy; E87.5 Hyperkalemia; J18.9 Pneumonia, unspecified organism; F19.90 Other psychoactive substance use, unspecified, uncomplicated; F14.10 Cocaine abuse, uncomplicated; I13.0 Hypertensive heart and chronic kidney disease with heart failure and stage 1 through stage 4 chronic kidney disease, or unspecified chronic kidney disease; E11.22 Type 2 diabetes mellitus with diabetic chronic kidney disease; N18.9 Chronic kidney disease, unspecified; I50.32 Chronic diastolic (congestive) heart failure; Z95.5 Presence of coronary angioplasty implant and graft; Z88.0 Allergy status to penicillin; N28.89 Other specified disorders of kidney and ureter
CPT/HCPCS: 0241U-QW; 36415; 70450-TC; 71045-TC-FY; 71250-TC; 76705-TC; 80048; 80053; 80307; 81003; 82570; 82803; 82962; 83036; 83605; 83690; 83735; 83880; 84100; 84156; 84300; 84439; 84443; 84484; 85025; 85027; 85610; 85730; 86038; 86160; 86225; 86235; 86359; 86360; 86850; 86900; 86901; 87040; 87086; 87536; 87899; 93005; 93010; 94640; 99285-25; J1644